=== PATIENT | male | born 2000 | race African-American/Black ===

== ENCOUNTER 2021-08-09 21:23 | Emergency (ER) | payer OTHER ==
[~2021-08-09] VITALS: Ht 180.3 cm; Wt 72.6 kg
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
[2021-08-09 23:45] VITALS: BP 108/62
== END 2021-08-09 23:48 | disposition home or self-care (01) ==
LOC: ER 21:23
DX: S00.93XA Contusion of unspecified part of head, initial encounter (principal); Y04.0XXA Assault by unarmed brawl or fight, initial encounter; Y93.89 Activity, other specified; Y92.89 Other specified places as the place of occurrence of the external cause; Y99.8 Other external cause status